=== PATIENT | female | born 1990 | race American Indian/Alaskan Native ===

== ENCOUNTER 2017-12-01 18:33 | Emergency (ER) | payer MEDICAID ==
[2017-12-01] MEDS ORDERED: Oxycodone/Acetaminophen 5/325 mg Tab PO STA (19:13)
--- NOTE | 2017-12-01 20:04 | C.PDOC ---
History Of Present Illness 27 year old female presents to the ER with a complaint of left upper dental pain for the past 2 days. Patient states she had that tooth filled 6 month ago but the filling fell out 2 days ago. Denies tooth discharge or fever. Time Seen by Provider: 12/01/17 18:51 Chief Complaint (Nursing): Dental Pain History Per: Patient History/Exam Limitations: no limitations Onset/Duration Of Symptoms: Days Current Symptoms Are (Timing): Still Present Recent travel outside of the [place]: No Past Medical History Reviewed: Historical Data, Nursing Documentation, Vital Signs Vital Signs: Last Vital Signs Temp 97.8 F 12/01/17 18:45 Pulse 71 12/01/17 18:45 Resp 20 12/01/17 20:07 BP 127/74 12/01/17 18:45 Pulse Ox 100 12/01/17 20:04 Family History: States: Unknown Family Hx - Social History Hx Alcohol Use: Yes Hx Substance Use: No - Immunization History Hx Tetanus Toxoid Vaccination: No Hx Influenza Vaccination: No Hx Pneumococcal Vaccination: No Review Of Systems Constitutional: Negative for: Fever, Chills ENT: Positive for: Mouth Pain. Negative for: Mouth Swelling Physical Exam - Physical Exam Appears: Non-toxic, No Acute Distress Skin: Normal Color, Warm, Dry Head: Atraumatic, Normacephalic Eye(s): bilateral: Normal Inspection Oral Mucosa: Moist Tongue: Normal Appearing Lips: Normal Appearing Teeth: Caries (Left upper molar) Gingiva: Normal Appearing, No Erythema, No Swelling Neurological/Psych: Oriented x3, Normal Speech ED Course And Treatment O2 Sat by Pulse Oximetry: 100 (Room air) Pulse Ox Interpretation: Normal Progress Note: Percocet and pen-vee-k administered. Patient discharged home with instructions to follow up with dentist for further evaluation. Disposition - Disposition Disposition: HOME/ ROUTINE Disposition Time: 20:02 Condition: STABLE Additional Instructions: Follow up with your Dentist within 1-2 days. return to ED if feel worse. Prescriptions: Penicillin VK [Penicillin VK Tab] 500 mg PO Q6H #40 tab oxyCODONE/Acetaminophen [Percocet 5/325 mg Tab] 1 tab PO QID PRN #20 tab PRN Reason: Pain Instructions: Dental Pain Forms: [facility] (Cameroonian), Work Excuse - Clinical Impression Clinical Impression: Dental caries - PA / SECRETARY OF STATE / Resident Statement / has reviewed & agrees with the documentation as recorded. - Scribe Statement The provider has reviewed the documentation as recorded by the Scribalberto Ruth All medical record entries made by the Joseph were at my direction and personally dictated by me. I have reviewed the chart and agree that the record accurately reflects my personal performance of the history, physical exam, medical decision making, and the department course for this patient. I have also personally directed, reviewed, and agree with the discharge instructions and disposition.
[2017-12-02 11:34] VITALS: BP 127/74; PULSE 71; RESP 20; TEMP 97.8; O2SAT 100; BMI 23.6
== END 2017-12-01 20:07 | disposition home or self-care (01) ==
LOC: C.ER 18:33
DX: K02.9 Dental caries, unspecified (principal)

== ENCOUNTER 2018-10-04 13:30 | Inpatient (IN) | payer MEDICAID ==
[2018-10-04 13:30] VITALS: BMI 23.6
--- NOTE | 2018-10-04 14:22 | C.PDOC ---
History Of Present Illness 28 yr old female, w/ hx of c section p/w suprapubic abdominal pain and vaginal bleeding. She notes pain vaginal bleeding and pain started this morning at 0400, throbbing, cramp like, period like. She notes passing moderate amount of clots as well. She denies any fever, chills or night sweats. No urinary complaints. No constipation or diarrhea. No dark or bloody stool. No nausea or vomiting. No headache. No other complaints. Time Seen by Provider: 10/04/18 13:47 Chief Complaint (Nursing): Female Genitourinary Past Medical History Vital Signs: Last Vital Signs Temp 98.1 F 10/04/18 14:00 Pulse 95 H 10/04/18 14:00 Resp 18 10/04/18 14:00 BP 111/64 10/04/18 14:00 Pulse Ox 100 10/04/18 14:00 Family History: States: Unknown Family Hx - Social History Hx Alcohol Use: Yes Hx Substance Use: No - Immunization History Hx Tetanus Toxoid Vaccination: No Hx Influenza Vaccination: No Hx Pneumococcal Vaccination: No Review Of Systems Constitutional: Negative for: Fever, Chills, Weakness, Malaise Eyes: Negative for: Pain, Vision Change ENT: Negative for: Ear Pain, Ear Discharge, Nose Pain, Nose Congestion, Mouth Pain, Mouth Swelling Cardiovascular: Negative for: Chest Pain, Palpitations, Orthopnea, Edema, Light Headedness Respiratory: Negative for: Cough, Shortness of Breath, SOB with Excertion, Pleuritic Pain Gastrointestinal: Positive for: Abdominal Pain (suprapubic). Negative for: Nausea, Constipation, Melena, Hematochezia, Hematemesis, Rectal Pain Genitourinary: Positive for: Vaginal Bleeding. Negative for: Dysuria, Frequency, Incontinence, Hematuria, Rash Musculoskeletal: Negative for: Neck Pain, Shoulder Pain Skin: Negative for: Rash, Lesions Neurological: Negative for: Weakness, Numbness, Incoordination Psych: Negative for: Anxiety Physical Exam - Physical Exam Appears: Well, No Acute Distress Skin: Normal Color, Warm, Dry Eye(s): bilateral: Normal Inspection, PERRL, EOMI Nose: Normal Oral Mucosa: Moist Tongue: Normal Appearing Lips: Normal Appearing Teeth: Normal Dentition Gingiva: Normal Appearing Throat: Normal, No Erythema, No Exudate Neck: Normal, Supple Cardiovascular: Rhythm Regular Respiratory: Normal Breath Sounds Gastrointestinal/Abdominal: Soft, Tenderness (suprapubic), No Organomegaly, No Mass, No Distention Back: Normal Inspection, No CVA Tenderness, No Vertebral Tenderness Extremity: Normal ROM Neurological/Psych: Oriented x3, Normal Speech, Normal Cognition ED Course And Treatment - Laboratory Results Result Diagrams: 10/04/18 16:44 10/04/18 16:44 O2 Sat by Pulse Oximetry: 100 - CT Scan/US ultrasound Other Rad Studies (CT/US): Read By Radiologist, Radiology Report Reviewed CT/US Interpretation: Date of service: 10/04/2018. Indication: vag bleeding, . Comparison: Pelvis/transvaginal ultrasound performed 08/03/15. Technique: Real-time transabdominal pelvic ultrasound was performed. In addition a transvaginal pelvic ultrasound was necessary to better depict pelvic anatomy. Findings: The uterus measures approximately 10.7 x 4.6 x 5.2 cm. Cervix length measures approximately 2.4 cm. There is a single intrauterine fetus present. 2 mm yolk sac. The gestational sac appears within the lower uterine segment and measures 2.4 cm and is compatible with a gestational age of 7 weeks 0 days. The crown-rump length measures 0.5 cm and is compatible with a gestational age of 6 weeks 1 day. heart motion is not detected at this time. Presumed endometrial cyst measuring approximately 0.3 x 0.3 x 0.5 cm. The right ovary measures 2.9 x 1.9 x 2.6 cm. The left ovary measures 2.7 x 1.5 x 3.7 cm. Blood flow was demonstrated to both ovaries. Impression: Gestational sac of appears within the lower uterine segment. Single intrauterine with estimated gestational age 7 weeks 0 days by gestational sac calculation and 6 weeks 1 day by crown-rump length calculation. heart motion is not detected. Correlate clinically and follow-up as indicated. Presumed endometrial cyst. Medical Decision Making Medical Decision Makin yr old female p/w suprapubic abdominal pain and vaginal bleeding. Likely threatened ab. Pt notes taking motrin earlier in the day: i informed pt tylenol is recc during preg. She notes mild pain currently. No RLQ or LLQ pain. No RUQ pain. Pending imaging, labs. 1748 labs largely unremarkable syncopized in bathroom of ED. No head impact, likely vasovagal as pt was in restroom and using toilet when occured. incomplete ab per Dr. Garcia (OB) admitted to Dr. Garcia: incomplete ab pt in NAD Disposition - Disposition Disposition: HOSPITALIZED Disposition Time: 17:49 Condition: STABLE - Clinical Impression Clinical Impression: Incomplete
[2018-10-04] MEDS ORDERED: Sodium Chloride 0.9% 1,000 ML IV SCH (14:30)
[2018-10-04] MEDS ORDERED: Sodium Chloride 0.9% 1,000 ML ONE (15:21)
[2018-10-04 15:48] LABS: URINE BILIRUBIN NEGATIVE (NEGATIVE); URINE BLOOD 3+ (NEGATIVE); URINE CLARITY Hazy (Clear); URINE COLOR Red (YELLOW); URINE GLUCOSE (UA) NORMAL (Normal); URINE LEUKOCYTE ESTERASE NEG Leu/uL (Negative); URINE PROTEIN 2+ mg/dL (NEGATIVE); URINE UROBILINOGEN NORMAL mg/dL (0.2-1.0)
--- NOTE | 2018-10-04 16:58 | US ---
Date of service: 10/04/2018 Indication: vag bleeding, Comparison: Pelvis/transvaginal ultrasound performed 08/03/15 Technique: Real-time transabdominal pelvic ultrasound was performed. In addition a transvaginal pelvic ultrasound was necessary to better depict pelvic anatomy. Findings: The uterus measures approximately 10.7 x 4.6 x 5.2 cm. Cervix length measures approximately 2.4 cm. There is a single intrauterine fetus present. 2 mm yolk sac. The gestational sac appears within the lower uterine segment and measures 2.4 cm and is compatible with a gestational age of 7 weeks 0 days. The crown-rump length measures 0.5 cm and is compatible with a gestational age of 6 weeks 1 day. heart motion is not detected at this time. Presumed endometrial cyst measuring approximately 0.3 x 0.3 x 0.5 cm. The right ovary measures 2.9 x 1.9 x 2.6 cm. The left ovary measures 2.7 x 1.5 x 3.7 cm. Blood flow was demonstrated to both ovaries. Impression: Gestational sac of appears within the lower uterine segment. Single intrauterine with estimated gestational age 7 weeks 0 days by gestational sac calculation and 6 weeks 1 day by crown-rump length calculation. heart motion is not detected. Correlate clinically and follow-up as indicated. Presumed endometrial cyst.
[2018-10-04 17:01] LABS: BASO % 0.8 % (0.0-2.0); EOS # 0.2 K/uL (0.0-0.7); EOS % 3.4 % (0.0-4.0); HEMOGLOBIN 11.3 g/dL (11.0-16.0); LYMPH # 2.5 K/uL (1.0-4.3); LYMPH % 40.4 % (20.0-40.0); MEAN CELL VOLUME 93.4 fL (81.0-99.0); MEAN CORPUSCULAR HEMOGLOBIN 30.4 pg (27.0-31.0); MEAN CORPUSCULAR HGB CONC 32.5 g/dL (33.0-37.0); MEAN PLATELET VOLUME 8.3 fL (7.2-11.7); MONO # 0.5 K/uL (0.0-0.8); MONO % 8.2 % (0.0-10.0); NEUT # 2.9 K/uL (1.8-7.0); NEUT % 47.2 % (50.0-75.0); NRBC % 0.1 % (0.0-2.0); RBC 3.71 Mil/uL (3.80-5.20); RED CELL DISTRIBUTION WIDTH 13.2 % (11.5-14.5); WHITE BLOOD COUNT 6.2 K/uL (4.8-10.8)
[2018-10-04 17:04] LABS: INR 1.2; PROTHROMBIN TIME 12.7 SECONDS (9.7-12.2)
[2018-10-04 17:09] LABS: ALB/GLOB RATIO 1.4 (1.0-2.1); ALBUMIN 3.5 g/dL (3.5-5.0); ALT/SGPT 23 U/L (9-52); AST/SGOT 20 U/L (14-36); BLOOD UREA NITROGEN 5 mg/dL (7-17); GFR NON-AFRICAN AMERICAN > 60
[2018-10-04] MEDS ORDERED: Doxycycline 100 mg Inj ONE (17:44)
--- NOTE | 2018-10-04 18:08 | CP.PCM.HP ---
History of Present Illness - History of Present Illness History of Present Illness: 28 y.o. , LMP late July,, C/O vaginal bleeding since 0400 hours and lower abdominal pain at the same time, pain scale 8/10. Came to E.D. for evaluation. S/P sonogram noted for SIUP, 7 weeks, no cardiac activity; gestat ional sac in lower uterine segment. After sono, in E.D. patient had one syncopal episode - from which she recovered immediately. Vital signs now 117/68, HR 80. Patient remains awake, alert and oriented. HPI: started care. last visit 1 weeks ago. 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 Denies STIs, abnormal Pap, myomata or ovarian cysts. PMH: denies PSH: C/S x 1. NKDA Meds: none Soc Hx: (+) tobacco 1 1/2 ppd x 11 years. (+) marijuana use - last used 2 days ago. Stopped EtOH use at beginning of . With FOB x 1 year. 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 Father alive 63 - type II DM. 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 - [employer] Alcohol: Occasional Drugs: Cannabis Home Situation {Lives}: With Family - CARDIAC Hx Cardiac Disorders: No - PULMONARY Hx Respiratory Disorders: No - NEUROLOGICAL Hx Neurological Disorder: No - HEENT Hx HEENT Problems: No - RENAL Hx Chronic Kidney Disease: No - ENDOCRINE/METABOLIC Hx Endocrine Disorders: No - HEMATOLOGICAL/ONCOLOGICAL Hx Blood Disorders: No - INTEGUMENTARY Hx Dermatological Problems: No - MUSCULOSKELETAL/RHEUMATOLOGICAL Hx Musculoskeletal Disorders: No - GASTROINTESTINAL Hx Gastrointestinal Disorders: No - GENITOURINARY/GYNECOLOGICAL Hx Genitourinary Disorders: No - PSYCHIATRIC Hx Substance Use: No - SURGICAL HISTORY Hx Section: Yes - ANESTHESIA Hx Anesthesia: Yes Hx Anesthesia Reactions: No Meds Allergies/Adverse Reactions: Allergies Allergy/AdvReac Type Severity Reaction Status Date / Time No Known Allergies Allergy Verified 10/04/18 14:05 Physical Exam - Constitutional Appears: Well, No Acute Distress - Head Exam Head Exam: NORMAL INSPECTION - Eye Exam Eye Exam: Normal appearance - ENT Exam ENT Exam: Mucous Membranes Moist - Neck Exam Neck exam: Positive for: Full Rom - Respiratory Exam Respiratory Exam: NORMAL BREATHING PATTERN - Cardiovascular Exam Cardiovascular Exam: REGULAR RHYTHM - GI/Abdominal Exam GI & Abdominal Exam: Soft - Exam Speculum exam: Vaginal Bleeding (Moderate amount of blood and blood clots approx 500 mL. No perceived tissue) Bimanual exam: Uterine Enlargement (Cervix 1cm. Uterus anteverted 10 weeks.) - Extremities Exam Extremities exam: Positive for: full ROM, normal inspection - Neurological Exam Neurological exam: Alert, Oriented x3 - Psychiatric Exam Psychiatric exam: Normal Affect, Normal Mood - Skin Skin Exam: Dry, Intact, Normal Color, Warm Results - Vital Signs Recent Vital Signs: Last Vital Signs Temp 98.1 F 10/04/18 14:00 Pulse 77 10/04/18 16:46 Resp 18 10/04/18 16:46 BP 107/57 L 10/04/18 16:46 Pulse Ox 100 10/04/18 17:50 - Labs Result Diagrams: 10/04/18 16:44 10/04/18 16:44 Labs: Laboratory Results - last 24 hr 10/04/18 10/04/18 10/04/18 15:37 16:43 16:44 WBC 6.2 RBC 3.71 L Hgb 11.3 D Hct 34.6 MCV 93.4 D MCH 30.4 MCHC 32.5 L RDW 13.2 Plt Count 310 MPV 8.3 Neut % (Auto) 47.2 L Lymph % (Auto) 40.4 H Coffey % (Auto) 8.2 Eos % (Auto) 3.4 Baso % (Auto) 0.8 Neut # (Auto) 2.9 Lymph # (Auto) 2.5 Coffey # (Auto) 0.5 Eos # (Auto) 0.2 Baso # (Auto) 0.0 PT INR APTT Sodium Potassium Chloride Carbon Dioxide Anion Gap BUN Creatinine Est GFR ( Amer) Est GFR (Non-Af Amer) POC Glucose (mg/dL) 102 Random Glucose Calcium Total Bilirubin AST ALT Alkaline Phosphatase Total Protein Albumin Globulin Albumin/Globulin Ratio Beta HCG, Quant Urine Color Red Urine Clarity Hazy Urine pH 7.0 Ur Specific [place] 1.011 Urine Protein 2+ H Urine Glucose (UA) Normal Urine Ketones Negative Urine Blood 3+ H Urine Nitrate Negative Urine Bilirubin Negative Urine Urobilinogen Normal Ur Leukocyte Esterase Neg Urine RBC (Auto) 04499 H Blood Type Antibody Screen 10/04/18 10/04/18 10/04/18 16:44 16:44 16:44 WBC RBC Hgb Hct MCV MCH MCHC RDW Plt Count MPV Neut % (Auto) Lymph % (Auto) Coffey % (Auto) Eos % (Auto) Baso % (Auto) Neut # (Auto) Lymph # (Auto) Coffey # (Auto) Eos # (Auto) Baso # (Auto) PT 12.7 H INR 1.2 APTT 26 Sodium 132 Potassium 3.9 Chloride 102 Carbon Dioxide 23 Anion Gap 10 BUN 5 L Creatinine 0.4 L Est GFR ( Amer) > 60 Est GFR (Non-Af Amer) > 60 POC Glucose (mg/dL) Random Glucose 89 Calcium 8.0 L Total Bilirubin 0.3 AST 20 ALT 23 Alkaline Phosphatase 74 Total Protein 5.9 L Albumin 3.5 Globulin 2.4 Albumin/Globulin Ratio 1.4 Beta HCG, Quant 7192.00 Urine Color Urine Clarity Urine pH Ur Specific [place] Urine Protein Urine Glucose (UA) Urine Ketones Urine Blood Urine Nitrate Urine Bilirubin Urine Urobilinogen Ur Leukocyte Esterase Urine RBC (Auto) Blood Type O POSITIVE Antibody Screen Negative Assessment & Plan - Assessment and Plan (Free Text) Assessment: 28 y.o. P1031, 7 weeks, inevitable with hemorrhage, S/P syncopal episode. Patient is hemodynamically stable. Ultrasound findings discussed. Consented for uterine evacuation; R/B/C discussed. Questions were answered. Consents signed, dated, witnessed and placed in chart. Patient last ate at 0800 hours; drank water for ultrasound at 1620 hours. Patient is clinically stable. Plan: Admit NPO IVFs: LR with Pitocin Doxycycline IVPB call center nurse to O.R. - Date & Time Date: 10/04/18 Time: 18:17
[2018-10-04] MEDS ORDERED: Lidocaine Hydrochloride 5 ML INJ ONE (18:26)
[2018-10-04] MEDS ORDERED: Propofol 10 mg/ml Inj (20 ML) ONE (18:26)
--- NOTE | 2018-10-04 18:52 | PCM.SURG1 ---
Surgeon's Initial Post Op Note - Surgeon's Notes Surgeon: Lexy Garcia MD Butcher Apprentice: Not applicable Type of Anesthesia: General Mask Anesthesia Administered By: Nakita Cohen MD Pre-Operative Diagnosis: Incomplete , 7 weeks, S/P syncopal episode; previous C/S Operative Findings: EUA: 10 weeks, AV uterus; no adnexal masses; cervix 1 cm dilated. Uterus sounded to 10 cm. Moderate amount of products of conceptiom Post-Operative Diagnosis: Same Operation Performed: Suction/sharp curettage Specimen/Specimens Removed: Products of conception Estimated Blood Loss: EBL {In ML}: 50 (U.O. 150 mL; IVFs 200 mL, 20 Units pitocin) Blood Products Given: N/A Drains Used: No Drains Post-Op Condition: Good Date of Surgery/Procedure: 10/04/18 Time of Surgery/Procedure: 18:53
[2018-10-04] MEDS ORDERED: HYDROmorphone 0.5 mg/0.5 ml ISec IVP PRN (18:58)
[2018-10-05 00:07] VITALS: RESP 18
[2018-10-05 00:42] VITALS: O2SAT 100
--- NOTE | 2018-10-05 05:23 | OP ---
PROCEDURE DATE: 10/04/2018 PREOPERATIVE DIAGNOSIS: Incomplete , 7 weeks gestation, status post syncopal episode, previous Caesarean section. POSTOPERATIVE DIAGNOSIS: Incomplete , 7 weeks gestation, status post syncopal episode, previous Caesarean section. SURGEON: Lexy Garcia MD REMOTE SENSING ADVISOR: None. ANESTHESIA TYPE: General with mask. ANESTHESIOLOGIST: Nakita Cohen MD OPERATIVE FINDINGS: Examination under anesthesia: 10 weeks, anteverted uterus with no adnexal masses. Cervix was 1 cm dilated. Uterus then sounded to 10 cm. There is a moderate amount of products of conception. SPECIMENS: Products of conception. OPERATION PERFORMED: Suction/sharp curettage. ESTIMATED BLOOD LOSS: 50 mL. URINE OUTPUT: 150 mL of clear urine. Intravenous fluids of 200 mL of lactated Ringer's with 20 units of Pitocin. BLOOD PRODUCTS GIVEN: None. COMPLICATIONS: None. DESCRIPTION OF PROCEDURE: The patient was taken to the operating room after having obtained an informed consent for the anticipated procedure. This included discussion of possibility of uterine perforation with the necessity for laparoscopy and/or laparotomy with repair of any damaged internal organs, removal of any diseased tissue; infection requiring antibiotics; hemorrhage requiring blood transfusion. The patient expressed understanding, she agreed. Her questions were answered, and consents were signed, dated, witnessed and placed in the chart. En route to the operating room, a Kelley catheter was inserted under sterile conditions and 100 mg of doxycycline was infusing. In the operating room, she was placed on the operating room table in a supine manner where anesthesia was administered. She was immediately repositioned in a dorsal lithotomy position in [facility]-cane stirrups. The perineum was prepped, and she was draped in usual sterile fashion. A weighted speculum was placed in the posterior vaginal vault. Using a Lopez retractor, the cervix was visualized and the anterior lip was grasped with a ring forceps. The uterus was sounded to 10 cm. A 9 mm suction curette was then inserted, attached to the suction device, and the suction device was activated. The uterus was emptied of its content. Then, sharp curettage was performed until a gritty texture was obtained. Repeat suction curettage was performed. The uterus was noted to be contracted around the suction tip. All instruments were removed. Bimanual massage was performed. The uterus was noted to be contracted about 8 weeks in size, anteverted, firm and mobile; and hemostasis was assured. The patient was then repositioned in a supine manner. She was allowed to arise from Anesthesia and transferred to the recovery room in stable condition. Lexy Garcia MD [id number]
[2018-10-05 08:05] VITALS: BP 108/53; PULSE 100; TEMP 97
[2018-10-05 08:21] LABS: BASO % 0.3 % (0.0-2.0); LYMPH # 1.3 K/uL (1.0-4.3); LYMPH % 16.6 % (20.0-40.0); MEAN CELL VOLUME 93.9 fL (81.0-99.0); MEAN CORPUSCULAR HEMOGLOBIN 31.4 pg (27.0-31.0); MEAN CORPUSCULAR HGB CONC 33.5 g/dL (33.0-37.0); MEAN PLATELET VOLUME 8.7 fL (7.2-11.7); MONO # 0.2 K/uL (0.0-0.8); NEUT # 6.3 K/uL (1.8-7.0); NEUT % 80.1 % (50.0-75.0); RBC 2.85 Mil/uL (3.80-5.20); WHITE BLOOD COUNT 7.9 K/uL (4.8-10.8)
--- NOTE | 2018-10-05 08:51 | CP.PCM.DIS ---
Provider - Provider Date of Admission: 10/04/18 17:41 Attending physician: Lexy Garcia MD Time Spent in preparation of Discharge (in minutes): 45 Hospital Course - Lab Results Lab Results: Most Recent Lab Values WBC 7.9 K/uL (4.8-10.8) 10/05/18 08:15 RBC 2.85 Mil/uL (3.80-5.20) L 10/05/18 08:15 Hgb 9.0 g/dL (11.0-16.0) L D 10/05/18 08:15 Hct 26.8 % (34.0-47.0) L 10/05/18 08:15 MCV 93.9 fL (81.0-99.0) 10/05/18 08:15 MCH 31.4 pg (27.0-31.0) H 10/05/18 08:15 MCHC 33.5 g/dL (33.0-37.0) 10/05/18 08:15 RDW 13.0 % (11.5-14.5) 10/05/18 08:15 Plt Count 264 K/uL (130-400) 10/05/18 08:15 MPV 8.7 fL (7.2-11.7) 10/05/18 08:15 Neut % (Auto) 80.1 % (50.0-75.0) H 10/05/18 08:15 Lymph % (Auto) 16.6 % (20.0-40.0) L 10/05/18 08:15 [place] % (Auto) 3.0 % (0.0-10.0) 10/05/18 08:15 Eos % (Auto) 0.0 % (0.0-4.0) 10/05/18 08:15 Baso % (Auto) 0.3 % (0.0-2.0) 10/05/18 08:15 Neut # (Auto) 6.3 K/uL (1.8-7.0) 10/05/18 08:15 Lymph # (Auto) 1.3 K/uL (1.0-4.3) 10/05/18 08:15 [place] # (Auto) 0.2 K/uL (0.0-0.8) 10/05/18 08:15 Eos # (Auto) 0.0 K/uL (0.0-0.7) 10/05/18 08:15 Baso # (Auto) 0.0 K/uL (0.0-0.2) 10/05/18 08:15 PT 12.7 SECONDS (9.7-12.2) H 10/04/18 16:44 INR 1.2 10/04/18 16:44 APTT 26 SECONDS (21-34) 10/04/18 16:44 Sodium 132 mmol/L (132-148) 10/04/18 16:44 Potassium 3.9 mmol/L (3.6-5.2) 10/04/18 16:44 Chloride 102 mmol/L (98-107) 10/04/18 16:44 Carbon Dioxide 23 mmol/L (22-30) 10/04/18 16:44 Anion Gap 10 (10-20) 10/04/18 16:44 BUN 5 mg/dL (7-17) L 10/04/18 16:44 Creatinine 0.4 mg/dL (0.7-1.2) L 10/04/18 16:44 Est GFR ( Amer) > 60 10/04/18 16:44 Est GFR (Non-Af Amer) > 60 10/04/18 16:44 POC Glucose (mg/dL) 102 mg/dL (65-110) 10/04/18 16:43 Random Glucose 89 mg/dL (65-105) 10/04/18 16:44 Calcium 8.0 mg/dl (8.6-10.4) L 10/04/18 16:44 Total Bilirubin 0.3 mg/dL (0.2-1.3) 10/04/18 16:44 AST 20 U/L (14-36) 10/04/18 16:44 ALT 23 U/L (9-52) 10/04/18 16:44 Alkaline Phosphatase 74 U/L (38-126) 10/04/18 16:44 Total Protein 5.9 g/dL (6.3-8.3) L 10/04/18 16:44 Albumin 3.5 g/dL (3.5-5.0) 10/04/18 16:44 Globulin 2.4 gm/dL (2.2-3.9) 10/04/18 16:44 Albumin/Globulin Ratio 1.4 (1.0-2.1) 10/04/18 16:44 Beta HCG, Quant 7192.00 mIU/ML 10/04/18 16:44 Urine Color Red (YELLOW) 10/04/18 15:37 Urine Clarity Hazy (Clear) 10/04/18 15:37 Urine pH 7.0 (5.0-8.0) 10/04/18 15:37 Ur Specific [place] 1.011 (1.003-1.030) 10/04/18 15:37 Urine Protein 2+ mg/dL (NEGATIVE) H 10/04/18 15:37 Urine Glucose (UA) Normal mg/dL (Normal) 10/04/18 15:37 Urine Ketones Negative mg/dL (NEGATIVE) 10/04/18 15:37 Urine Blood 3+ (NEGATIVE) H 10/04/18 15:37 Urine Nitrate Negative (NEGATIVE) 10/04/18 15:37 Urine Bilirubin Negative (NEGATIVE) 10/04/18 15:37 Urine Urobilinogen Normal mg/dL (0.2-1.0) 10/04/18 15:37 Ur Leukocyte Esterase Neg [place]/uL (Negative) 10/04/18 15:37 Urine RBC (Auto) 76554 /hpf (0-3) H 10/04/18 15:37 Blood Type O POSITIVE 10/04/18 16:44 Antibody Screen Negative 10/04/18 16:44 - Hospital Course Hospital Course: HPI: 28 y.o. , LMP late July,, C/O vaginal bleeding since 0400 hours and lower abdominal pain at the same time, pain scale 8/10. Came to [facility] for evaluation. S/P sonogram noted for SIUP, 7 weeks, no cardiac activity; gestational sac in lower uterine segment. After sono, in E.D. patient had one syncopal episode - from which she recovered immediately. Vital signs now 117/68, HR 80. Patient remains awake, alert and oriented. HPI: started care. last visit 1 weeks ago. Had appointment for ultrasound Hospital course: Patient was admitted on 10/04/17 for inevitable and syncopal episode. Patient was started on IVFluids, Pitocin, and Doxycycline 100mg IV Q12h. Patient was taken to the OR for a uterine evacuation. Patient was seen and examined at bedside in no acute distress. Patient is s/p uterine evacuation, POD#1. Patient states she is feeling better, denies having pain. She is having minimal vaginal bleeding and denies blood clots. She denies nausea, vomiting, fevers, headaches, chest pain, dyspnea dizziness. Patient is stable for discharge to home per Dr. Kendrick. Patient must continue colace for constipation, motrin prn for pain, feosol 325mg PO tid (take 1 tablet three times a day for anemia). Patient must follow up with her OB within 1 week of discharge. If patient is having fevers, heavy vaginal bleeding, severe abdominal pain, patient must return to the nearest emergency room. Discharge Exam - Head Exam Head Exam: NORMAL INSPECTION - Eye Exam Eye Exam: Normal appearance - ENT Exam ENT Exam: Mucous Membranes Moist - Respiratory Exam Respiratory Exam: Clear to PA & Lateral, NORMAL BREATHING PATTERN. absent: Rales, Rhonchi, Wheezes, Respiratory Distress - Cardiovascular Exam Cardiovascular Exam: REGULAR RHYTHM, +S1, +S2 - GI/Abdominal Exam GI & Abdominal Exam: Normal Bowel Sounds, Soft, Tenderness (mild suprapubic tenderness). absent: Distended, Firm, Guarding - Extremities Exam Extremities exam: normal inspection, pedal pulses present - Neurological Exam Neurological exam: Alert, Oriented x3 - Psychiatric Exam Psychiatric exam: Normal Affect, Normal Mood - Skin Skin Exam: Dry, Intact, Normal Color, Warm Discharge Plan - Discharge Medications Prescriptions: Docusate Sodium [Colace] 100 mg PO BID #60 capsule Ferrous Sulfate [Feosol] 325 mg PO TID #90 tab Ibuprofen [Motrin Tab] 600 mg PO Q6 PRN #30 tab PRN Reason: Pain, Moderate (4-7) - Follow Up Plan Condition: STABLE Disposition: HOME/ ROUTINE Instructions: Dilation and Curettage (DC) Additional Instructions: Patient is stable for discharge to home per Dr. Kendrick. Patient must continue motrin as needed for pain, colace for constipation, feosol 325mg PO tid (take 1 tablet three times a day for anemia). Patient must follow up with her OB within 1 week of discharge. If patient is having fevers, heavy vaginal bleeding, severe abdominal pain, patient must return to the nearest emergency room.
[2018-10-05] MEDS ORDERED: Influenza Vaccine 60 mcg/0.5 mL SYR (4YR UP) IM ONE (12:00)
== END 2018-10-05 12:30 | disposition home or self-care (01) | DRG 381 ==
LOC: C.ER 13:30 → C.4M 17:41
PROVIDERS: ADMIT Obstetrics & Gynecology; ATTEND Obstetrics & Gynecology
PROC: 10D17ZZ Extraction of Products of Conception, Retained, Via Natural or Artificial Opening (ICD-10-PCS; principal; 2018-10-04 18:30)
DX: O03.4 Incomplete spontaneous abortion without complication (principal); Z3A.10 10 weeks gestation of pregnancy; D64.9 Anemia, unspecified; K59.00 Constipation, unspecified; F12.90 Cannabis use, unspecified, uncomplicated; N85.4 Malposition of uterus; N85.8 Other specified noninflammatory disorders of uterus